=== PATIENT | male | born 1960 | race Caucasian/White ===

== ENCOUNTER 2024-06-20 12:54 | Outpatient (OUT) | payer MEDICARE, SELFPAY ==
--- NOTE | 2024-06-20 13:01 | XR_ITS ---
The [address] [address] Patient Name: SHALA CORRAL MRN: [id number] date: 1960 Sex: M Assigned Patient Location: [facility] Current Patient Location: Accession/Order Number: [id number] Exam Date: 06/20/2024 13:07 Report Date: 06/21/2024 06:39 At the request of: RUBENS HUGHES Procedure: XR chest 2V EXAMINATION: XR chest 2V HISTORY: Subacute Cough , Weak, Night Sweats COMPARISON: No relevant comparison available. FINDINGS: LUNGS: No significant pulmonary parenchymal abnormalities. VASCULATURE: No increased pulmonary vasculature. PLEURA: No pneumothorax, effusion, or pleural thickening. CARDIAC: No cardiomegaly or cardiac silhouette abnormality. MEDIASTINUM: No visible mass or adenopathy. BONES: No fracture or visible bone lesion. OTHER: Negative. XR/XR chest 2V IMPRESSION: 1. Hyperexpanded lungs. 2. No acute cardiopulmonary process or appreciable mass or hilar adenopathy. Electronically authenticated by: SORAYA AVILA Date: 06/21/2024 06:39
== END 2024-06-20 12:55 | disposition home or self-care (01) ==
LOC: RAD 12:56
PROVIDERS: PCP Family Medicine; Visit Provider Family Medicine
DX: R68.89 Other general symptoms and signs (principal); R05.2 Subacute cough; R53.1 Weakness; R61 Generalized hyperhidrosis; E16.2 Hypoglycemia, unspecified
CPT/HCPCS: 71046